=== PATIENT | male | born 1990 | race Caucasian/White ===

== ENCOUNTER 2017-12-03 09:28 | Emergency (ER) | payer BC, OTHER ==
--- NOTE | 2017-12-03 10:40 | RAD REPORT ---
EXAM DESCRIPTION: RAD - Chest Pa And Lat (2 Views) - 12/03/2017 10:03 am CLINICAL HISTORY: Right lateral chest wall pain. COMPARISON: 05/14/2012 FINDINGS: The lungs are clear. The heart is normal in size. No displaced fractures. IMPRESSION: No acute or concerning finding suspected.
--- NOTE | 2017-12-03 10:54 | ER ---
Nurse's Notes [facility] Name: Donavon Herron Age: 27 yrs Sex: Male : 1990 Arrival Date: 12/03/2017 Time: 09:29 Bed 23 Private MD: Diagnosis: Chest pain on breathing Presentation: 12/03 09:37 Presenting complaint: Patient states: pain to R ribs that began 5 days ago after ss pulling lines with a wrench. Pt reports that pain increases with movement and deep breathing. Transition of care: patient was not received from another setting of care. Onset of symptoms was November 29, 2017. Care prior to arrival: None. 09:37 Method Of Arrival: Ambulatory ss 09:37 Acuity: RAKESH 4 ss Historical: - Allergies: 09:39 No Known Allergies; ss - Home Meds: 09:39 sertraline 100 mg oral tab 1 tab once daily [Active]; ss - PMHx: 09:39 Anxiety; ss - PSHx: 09:39 None; ss - Immunization history:: Adult Immunizations up to date. - Social history:: Smoking status: Patient uses tobacco products, chewing tobacco. Screenin:30 Abuse screen: Denies threats or abuse. Denies injuries from another. Nutritional aj1 screening: No deficits noted. Tuberculosis screening: No symptoms or risk factors identified. 11:32 Fall Risk None identified. aj1 Assessment: 09:57 Reassessment: Patient in X-Ray at this time. aj1 10:30 General: Appears in no apparent distress. uncomfortable, Behavior is calm, cooperative, aj1 appropriate for age. Pain: Complains of pain in right lateral anterior chest Pain does not radiate. Pain currently is 8 out of 10 on a pain scale. Quality of pain is described as sharp, Pain began 5 daysago Alleviated by rest, Aggravated by increased activity, repositioning, deep breathing. Neuro: Level of Consciousness is awake, alert, obeys commands, Oriented to person, place, time, situation, Speech is normal. Cardiovascular: Heart tones S1 S2 present Patient's skin is warm and dry. Rhythm is regular. Respiratory: Airway is patent Respiratory effort is even, unlabored, Respiratory pattern is regular, symmetrical, Breath sounds are clear bilaterally. GI: No signs and/or symptoms were reported involving the gastrointestinal system. : No signs and/or symptoms were reported regarding the genitourinary system. EENT: No signs and/or symptoms were reported regarding the EENT system. Derm: No signs and/or symptoms reported regarding the dermatologic system. Skin is pink, warm \T\ dry. normal. Musculoskeletal: No signs and/or symptoms reported regarding the musculoskeletal system. Circulation, motion, and sensation intact. 11:31 Reassessment: Patient appears in no apparent distress at this time. No changes from aj1 previously documented assessment. Patient and/or family updated on plan of care and expected duration. Pain level reassessed. Patient is alert, oriented x 3, equal unlabored respirations, skin warm/dry/pink. Vital Signs: 09:39 BP 123 / 94; Pulse 72; Resp 16; Temp 98.2(TE); Pulse Ox 96% on R/A; Weight 125.65 kg; ss Height 5 ft. 8 in. (172.72 cm); Pain 8/10; 10:51 BP 124 / 75; Pulse 64; Resp 18; Pulse Ox 97% on R/A; aj1 09:39 Body Mass Index 42.12 (125.65 kg, 172.72 cm) ED Course: 09:29 Patient arrived in ED. as 09:39 Triage completed. ss 09:39 Arm band placed on right wrist. ss 09:44 [facility] kb 09:44 Rai Spann MD is Attending Physician. kb 09:57 Martha Sanford, JENNIFER is Primary Nurse. aj1 09:59 X-ray completed. Patient tolerated procedure well. Patient moved back from radiology. jb2 09:59 XRAY Chest Pa And Lat (2 Views) In Process Unspecified. EDMS 10:30 Patient has correct armband on for positive identification. Pulse ox on. NIBP on. aj1 10:30 No provider procedures requiring assistance completed. Patient maintains SpO2 aj1 saturation greater than 95% on room air. 11:31 Patient did not have IV access during this emergency room visit. aj1 Administered Medications: 10:56 Drug: TORadol 60 mg Route: IM; Site: right gluteus; aj1 11:31 Follow up: Response: No adverse reaction aj1 Outcome: 10:53 Discharge ordered by . kb 11:32 Discharged to home ambulatory. aj1 11:32 Condition: good 11:32 Discharge instructions given to patient, Instructed on discharge instructions, follow up and referral plans. Demonstrated understanding of instructions, follow-up care. 11:32 Patient left the ED. aj1 Signatures: Dispatcher [employer] Alondra Smalls, SLIM-Monica SMALLS-Martha Alva, RN RN aj1 Ezekiel Quintero2 Rand Morelos Shelby, JENNIFER RODRIGUEZ ss
--- NOTE | 2017-12-03 10:54 | EDPHYS ---
Physician Documentation [facility] Name: Donavon Herron Age: 27 yrs Sex: Male : 1990 Arrival Date: 12/03/2017 Time: 09:29 Bed 23 Private MD: ED Physician Rai Spann HPI: 12/03 10:28 This 27 yrs old Male presents to ER via Ambulatory with complaints of Chest kb Wall Pain. 10:28 The patient or guardian reports chest pain that is located primarily in the anterior kb chest wall, right. The pain does not radiate. Associated signs and symptoms: The patient has no apparent associated signs or symptoms. The chest pain is described as aching. Duration: The patient or guardian reports a single episode. Modifying factors: The symptoms are alleviated by nothing. the symptoms are aggravated by deep breath, movement, palpation of area. Severity of pain: At its worst the pain was moderate in the emergency department the pain is unchanged. The patient has not experienced similar symptoms in the past. The patient has not recently seen a physician. Pt states he was pulling on something and felt a pop to anterior lower right ribs on Wednesday. States he has had pain to that area since then that is worse with movement, deep breath, and palpation. . Historical: - Allergies: 09:39 No Known Allergies; ss - Home Meds: 09:39 sertraline 100 mg oral tab 1 tab once daily [Active]; ss - PMHx: 09:39 Anxiety; ss - PSHx: 09:39 None; ss - Immunization history:: Adult Immunizations up to date. - Social history:: Smoking status: Patient uses tobacco products, chewing tobacco. ROS: 10:27 Constitutional: Negative for fever, chills, and weight loss, Respiratory: Negative for kb shortness of breath, cough, wheezing, and pleuritic chest pain, Abdomen/GI: Negative for abdominal pain, nausea, vomiting, diarrhea, and constipation, MS/Extremity: Negative for injury and deformity, Skin: Negative for injury, rash, and discoloration, Neuro: Negative for headache, weakness, numbness, tingling, and seizure. 10:27 Cardiovascular: Positive for chest pain, with cough, with movement, of the right lateral anterior chest, Negative for edema, orthopnea, palpitations, paroxysmal nocturnal dyspnea. Exam: 10:27 Constitutional: This is a well developed, well nourished patient who is awake, alert, kb and in no acute distress. Head/Face: Normocephalic, atraumatic. Cardiovascular: Regular rate and rhythm with a normal S1 and S2. No gallops, murmurs, or rubs. Normal PMI, no JVD. No pulse deficits. Respiratory: Lungs have equal breath sounds bilaterally, clear to auscultation and percussion. No rales, rhonchi or wheezes noted. No increased work of breathing, no retractions or nasal flaring. Abdomen/GI: Soft, non-tender, with normal bowel sounds. No distension or tympany. No guarding or rebound. No evidence of tenderness throughout. Skin: Warm, dry with normal turgor. Normal color with no rashes, no lesions, and no evidence of cellulitis. MS/ Extremity: Pulses equal, no cyanosis. Neurovascular intact. Full, normal range of motion. Neuro: Awake and alert, GCS 15, oriented to person, place, time, and situation. Cranial nerves II-XII grossly intact. Motor strength 5/5 in all extremities. Sensory grossly intact. Cerebellar exam normal. Normal gait. 10:27 Chest/axilla: Inspection: normal, Palpation: tenderness, that is moderate, of the right lateral anterior chest, that totally reproduces the patient's complaints. Vital Signs: 09:39 BP 123 / 94; Pulse 72; Resp 16; Temp 98.2(TE); Pulse Ox 96% on R/A; Weight 125.65 kg; ss Height 5 ft. 8 in. (172.72 cm); Pain 8/10; 10:51 BP 124 / 75; Pulse 64; Resp 18; Pulse Ox 97% on R/A; aj1 09:39 Body Mass Index 42.12 (125.65 kg, 172.72 cm) ss MDM: 09:50 Patient medically screened. kb 10:27 Data reviewed: vital signs, nurses notes. Data interpreted: Pulse oximetry: on room air kb is 96 %. Interpretation: normal. 10:40 Counseling: I had a detailed discussion with the patient and/or guardian regarding: the kb historical points, exam findings, and any diagnostic results supporting the discharge/admit diagnosis, radiology results, the need for outpatient follow up, a family practitioner, to return to the emergency department if symptoms worsen or persist or if there are any questions or concerns that arise at home. 12/03 09:40 Order name: XRAY Chest Pa And Lat (2 Views); Complete Time: 10:40 ss 12/03 10:41 Order name: INCENTIVE SPIROMETRY kb Administered Medications: 10:56 Drug: TORadol 60 mg Route: IM; Site: right gluteus; aj1 11:31 Follow up: Response: No adverse reaction aj1 Disposition: 15:47 Co-signature as Attending Physician, Rai Spann MD I agree with the assessment and martha plan of care. Disposition: 12/03/17 10:53 Discharged to Home. Impression: Chest pain on breathing. - Condition is Stable. - Discharge Instructions: Costochondritis, [id number], Chest Wall Pain, [id number]. - Medication Reconciliation Form, Thank You Letter, Antibiotic Education, Prescription Opioid Use form. - Follow up: Emergency Department; When: As needed; Reason: Worsening of condition. Follow up: Private Physician; When: 2 - 3 days; Reason: Recheck today's complaints, Continuance of care, Re-evaluation by your physician. Signatures: Dispatcher [employer] Alondra Smalls, INLAYER-C INLAYER-Martha Alva, RN RN aj1 Rai Spann MD MD cha Smirch, Shelby, RN RN
[2017-12-03] MEDS ORDERED: KETOROLAC 30 MG/ML INJ ONE (11:13)
[2017-12-03 11:37] VITALS: TEMP 98.2
[2017-12-03 11:38] VITALS: BP 124/75; O2SAT 97
== END 2017-12-03 11:32 | disposition home or self-care (01) ==
LOC: ER 09:28
DX: R07.1 Chest pain on breathing (principal); F41.9 Anxiety disorder, unspecified; Z72.0 Tobacco use
CPT/HCPCS: 71046; 96372; 99284

== ENCOUNTER 2018-12-14 17:51 | Emergency (ER) | payer OTHER ==
[2018-12-14 18:31] LABS: Absolute Lymphocytes (CBC) 2.1 K/uL (0.7-4.9); Absolute Monocytes 0.5 K/uL (0.1-1.3); Absolute Neutrophil 5.5 K/uL (1.8-8.0); Basophils % 0.6 % (0-1.3); Eosinophils % 1.5 % (0-4.4); Hematocrit 44.1 % (39.6-49.0); Lymphocytes % 25.1 % (15.3-44.8); MPV 8.6 fL (7.6-11.3); Monocytes % 6.2 % (3.3-12.3)
[2018-12-14 18:35] LABS: Protime INR 1.01
[2018-12-14 18:47] LABS: ALT/SGPT 30 U/L (12-78); AST/SGOT 20 U/L (15-37); Albumin 4.1 g/dL (3.4-5.0); Alkaline Phosphatase 96 U/L (45-117); BUN Blood Urea Nitrogen 13 mg/dL (7-18); Bicarbonate 26 mmol/L (21-32); Bilirubin Direct 0.2 mg/dL (0-0.2); Bilirubin Total 0.6 mg/dL (0.2-1.0); CKMB Creatine Kinase MB 1.2 ng/mL (0.3-3.6); Creatine Phosphokinase 88 U/L (39-308); Glucose Level 88 mg/dL (74-106); Magnesium 2.4 mg/dL (1.8-2.4); NT PRO-BNP 9 pg/mL (<125); Potassium 3.9 mmol/L (3.5-5.1); Protein, Total 7.6 g/dL (6.4-8.2); Sodium Level 142 mmol/L (136-145); Troponin (Emerg Dept Use Only) < 0.02 ng/mL (0.0-0.045)
--- NOTE | 2018-12-14 18:52 | RAD REPORT ---
EXAM DESCRIPTION: Pete Single View12/14/2018 6:28 pm CLINICAL HISTORY: Chest pain COMPARISON: November 2017 FINDINGS: The lungs appear clear of acute infiltrate. The heart is normal size IMPRESSION: No acute abnormalities displayed
[2018-12-14] MEDS ORDERED: KETOROLAC 30 MG/ML INJ ONE (19:10)
--- NOTE | 2018-12-14 19:50 | ER ---
Nurse's Notes [facility] Name: Donavon Herron Age: 28 yrs Sex: Male : 1990 Arrival Date: 12/14/2018 Time: 17:53 Bed 2 Private MD: Diagnosis: Other chest pain;Electrocution Presentation: 12/14 17:58 Presenting complaint: Patient states: getting shocked by his welding machine, didn't sv realize that the wire was frayed. Has been having anterior chest wall pain since then. Transition of care: patient was not received from another setting of care. Onset of symptoms was December 14, 2018 at 12:00. Care prior to arrival: None. 17:58 Method Of Arrival: Ambulatory sv 17:58 Acuity: RAKESH 2 sv 18:05 Risk Assessment: Do you want to hurt yourself or someone else? Patient reports no aa5 desire to harm self or others. Initial Sepsis Screen: Does the patient meet any 2 criteria? No. Patient's initial sepsis screen is negative. Does the patient have a suspected source of infection? No. Patient's initial sepsis screen is negative. Historical: - Allergies: 17:59 No Known Allergies; sv - PMHx: 17:59 Anxiety; sv - PSHx: 17:59 None; sv - Immunization history:: Adult Immunizations unknown. - Ebola Screening: : No symptoms or risks identified at this time. - Social history:: Smoking status: unknown. Screenin:05 Abuse screen: Denies threats or abuse. Nutritional screening: No deficits noted. aa5 Tuberculosis screening: No symptoms or risk factors identified. Fall Risk None identified. Assessment: 18:05 General: Appears comfortable, Behavior is calm, cooperative. Pain: Complains of pain in aa5 mid-sternal area Pain does not radiate. Pain currently is 0 out of 10 on a pain scale. Quality of pain is described as pressure, Pain began around 1200 Is intermittent. Neuro: Level of Consciousness is awake, alert, obeys commands, Oriented to person, place, time, situation. Cardiovascular: Heart tones S1 S2 present Rhythm is sinus rhythm. Respiratory: Airway is patent Respiratory effort is even, unlabored, Respiratory pattern is regular, symmetrical, Breath sounds are clear bilaterally. GI: No signs and/or symptoms were reported involving the gastrointestinal system. : No signs and/or symptoms were reported regarding the genitourinary system. EENT: No signs and/or symptoms were reported regarding the EENT system. Derm: Skin is pink, warm \\T\\ dry. No entry or exit wound noted, pt states "I was holding on with both hands so I don't know if it was the actual welding machine that electrocuted me or the frayed wire". Musculoskeletal: Range of motion: intact in all extremities. 19:00 Reassessment: Patient is alert, oriented x 3, equal unlabored respirations, skin aa5 warm/dry/pink. 19:00 Pain: Pain currently is 4 out of 10 on a pain scale. Cardiovascular: Rhythm is sinus aa5 rhythm. Vital Signs: 17:59 BP 138 / 82; Pulse 99; Resp 16; Temp 97.7; Pulse Ox 97% ; Weight 127.01 kg; Height 5 sv ft. 7 in. (170.18 cm); Pain 0/10; 17:59 Body Mass Index 43.85 (127.01 kg, 170.18 cm) sv ED Course: 17:53 Patient arrived in ED. mr 17:59 Triage completed. sv 18:00 Arm band placed on. sv 18:05 Courtney Whitt RN is Primary Nurse. aa5 18:05 Patient has correct armband on for positive identification. Placed in gown. Bed in low aa5 position. Call light in reach. Side rails up X2. monitor car operator on. Pulse ox on. NIBP on. 18:05 EKG done, by ED staff, reviewed by Dre Yates MD. aa5 18:07 Rai Hanna PA is PHCP. cp 18:07 Dre Yates MD is Attending Physician. cp 18:19 Initial lab(s) drawn, by me, sent to lab. Inserted saline lock: 20 gauge in left aa5 antecubital area, using aseptic technique. Blood collected. 18:19 No provider procedures requiring assistance completed. Patient maintains SpO2 aa5 saturation greater than 95% on room air. 18:24 X-ray completed. Portable x-ray completed in exam room. Patient tolerated procedure bb2 well. 18:25 XRAY Chest (1 view) In Process Unspecified. EDMS 19:03 Report given to JENNIFER Malave. aa5 19:58 IV discontinued, intact, bleeding controlled, No redness/swelling at site. Pressure ak1 dressing applied. Administered Medications: 19:00 Drug: TORadol 30 mg Route: IVP; Site: left antecubital; aa5 19:58 Follow up: Response: No adverse reaction ak1 Outcome: 19:49 Discharge ordered by MD. cp 19:52 Discharged to home ambulatory, with family. ak1 19:52 Condition: good 19:52 Discharge instructions given to patient, family, Instructed on discharge instructions, follow up and referral plans. no drinking with medication, no driving heavy equipment, medication usage, Demonstrated understanding of instructions, follow-up care, medications, Prescriptions given X 1. 20:04 Patient left the ED. ea Signatures: Dispatcher [employer] EDMS Annalee Bowen, RN Arabella Baptiste mr Whitt, Courtney, RN RN Frieda Desai RN RN ak1 Rai Hanna PA PA cp Antunez, Elena, RN RN ea Bock, Brittany bb2
--- NOTE | 2018-12-14 19:50 | EDPHYS ---
Physician Documentation [facility] Name: Donavon Herron Age: 28 yrs Sex: Male : 1990 Arrival Date: 12/14/2018 Time: 17:53 Bed 2 Private MD: ED Physician Dre Yates HPI: 12/14 18:15 This 28 yrs old Male presents to ER via Ambulatory with complaints of Chest cp Tightness, Shocked by welding machine. 18:15 The patient or guardian reports chest pain that is located primarily in the anterior cp chest wall, bilaterally. 18:15 The pain does not radiate. Associated signs and symptoms: Pertinent negatives: cp abdominal pain, cough, diaphoresis, lower extremity pain, lower extremity swelling, shortness of breath, syncope. The chest pain is described as tightness. Duration: The patient or guardian reports a single episode, that is still ongoing. Patient reports chest pain started shortly after being shocked by welding machine around 1200 today. Historical: - Allergies: 17:59 No Known Allergies; sv - PMHx: 17:59 Anxiety; sv - PSHx: 17:59 None; sv - Immunization history:: Adult Immunizations unknown. - Ebola Screening: : No symptoms or risks identified at this time. - Social history:: Smoking status: unknown. ROS: 18:20 Constitutional: Negative for body aches, chills, fever, poor PO intake. cp 18:20 Eyes: Negative for injury, pain, redness, and discharge. cp Exam: 18:20 ECG was reviewed by the Attending Physician. cp 18:22 Constitutional: The patient appears in no acute distress, alert, awake, cp non-diaphoretic, non-toxic, well developed, well nourished, obese. 18:22 Head/Face: Normocephalic, atraumatic. cp 18:22 Eyes: Pupils equal round and reactive to light, extra-ocular motions intact. Lids and lashes normal. Conjunctiva and sclera are non-icteric and not injected. Cornea within normal limits. Periorbital areas with no swelling, redness, or edema. ENT: Nares patent. No nasal discharge, no septal abnormalities noted. Tympanic membranes are normal and external auditory canals are clear. Oropharynx with no redness, swelling, or masses, exudates, or evidence of obstruction, uvula midline. Mucous membranes moist. 18:22 Chest/axilla: Inspection: normal, Palpation: crepitus, is not appreciated, tenderness, that is mild, of the anterior aspect of right upper chest, anterior aspect of left upper chest and mid-sternal area. 18:22 Cardiovascular: Rate: normal, Rhythm: regular, Pulses: Pulses are 2+ in right radial artery and left radial artery. Heart sounds: murmur, not appreciated, Edema: is not appreciated, JVD: is not appreciated. 18:22 Respiratory: the patient does not display signs of respiratory distress, Respirations: normal, no use of accessory muscles, no retractions, no splinting, no tachypnea, labored breathing, is not present, Breath sounds: are clear throughout, no decreased breath sounds, no stridor, no wheezing. 18:22 Abdomen/GI: Inspection: abdomen appears normal, Bowel sounds: active, all quadrants, Palpation: abdomen is soft and non-tender, in all quadrants, rebound tenderness, is not appreciated, involuntary guarding, is not appreciated. 18:22 Back: pain, is absent, ROM is normal. 18:22 Skin: cellulitis, is not appreciated, no rash present. Vital Signs: 17:59 BP 138 / 82; Pulse 99; Resp 16; Temp 97.7; Pulse Ox 97% ; Weight 127.01 kg; Height 5 sv ft. 7 in. (170.18 cm); Pain 0/10; 17:59 Body Mass Index 43.85 (127.01 kg, 170.18 cm) sv MDM: 18:07 Patient medically screened. cp 18:30 Differential diagnosis: abnormal EKG, acute myocardial infarction, acute pericarditis, cp chest wall pain, pancreatitis, pericarditis, pleurisy, pneumonia, pneumothorax, pulmonary embolus, stable angina, unstable angina. 19:45 Data reviewed: vital signs, nurses notes, lab test result(s), EKG, radiologic studies, cp plain films. 19:45 Test interpretation: by ED physician or midlevel provider: ECG, plain radiologic cp studies. Response to treatment: the patient's symptoms have mildly improved after treatment, and as a result, I will discharge patient. Special discussion: Based on the patient's history, exam, and Dx evaluation, there is no indication for emergent intervention or inpatient Tx. It is understood by the patient/guardian that if the Sx's persist or worsen they need to return immediately for re-evaluation. 12/14 18:11 Order name: Basic Metabolic Panel; Complete Time: 19:10 cp 12/14 19:10 Interpretation: Normal except: GFR 85. cp 12/14 18:11 Order name: CBC with Diff; Complete Time: 19:10 cp 12/14 19:10 Interpretation: Reviewed. cp 12/14 18:11 Order name: LFT's; Complete Time: 19:10 cp 12/14 18:11 Order name: Magnesium; Complete Time: 19:10 cp 12/14 18:11 Order name: NT PRO-BNP; Complete Time: 19:10 cp 12/14 19:19 Interpretation: Within normal limits: NT PRO-BNP 9. cp 12/14 18:11 Order name: PT-INR; Complete Time: 19:10 cp 12/14 18:11 Order name: Troponin (emerg Dept Use Only); Complete Time: 19:10 cp 12/14 19:10 Interpretation: Within normal limits: TROPED < 0.02. cp 12/14 18:11 Order name: XRAY Chest (1 view); Complete Time: 19:10 cp 12/14 19:10 Interpretation: Report review. cp 12/14 18:11 Order name: EKG; Complete Time: 18:12 cp 12/14 18:11 Order name: Cardiac monitoring; Complete Time: 18:22 cp 12/14 18:11 Order name: EKG - Nurse/Tech; Complete Time: 18:22 cp 12/14 18:11 Order name: CK; Complete Time: 19:10 cp 12/14 19:19 Interpretation: Within normal limits: CPK 88. cp 12/14 18:11 Order name: Ckmb; Complete Time: 19:10 cp 12/14 19:20 Interpretation: Within normal limits: CKMB 1.2. cp 12/14 18:11 Order name: IV Saline Lock; Complete Time: 18:22 cp 12/14 18:11 Order name: Labs collected and sent; Complete Time: 18:22 cp 12/14 18:11 Order name: O2 Per Protocol; Complete Time: 18:22 cp 12/14 18:11 Order name: O2 Sat Monitoring; Complete Time: 18:22 cp EC:20 Rate is 84 beats/min. Rhythm is regular. FL interval is normal. QRS interval is normal. cp QT interval is normal. T waves are Inverted in lead III. Interpreted by me. Reviewed by me. Administered Medications: 19:00 Drug: TORadol 30 mg Route: IVP; Site: left antecubital; aa5 19:58 Follow up: Response: No adverse reaction ak1 Disposition: 12/14/18 19:49 Discharged to Home. Impression: Other chest pain, Electrocution. - Condition is Stable. - Discharge Instructions: Chest Wall Pain, Electric Shock Injury. - Prescriptions for Ibuprofen 800 mg Oral Tablet - take 1 tablet by ORAL route every 8 hours As needed take with food; 30 tablet. - Medication Reconciliation Form, Thank You Letter, Antibiotic Education, Prescription Opioid Use form. - Follow up: Private Physician; When: 1 - 2 days; Reason: Worsening of condition. - Problem is new. - Symptoms have improved. Signatures: Dispatcher [employer] EDAnnalee Adams RN RN sv Calderon, Audri RN RN aa5 Frieda Resendez RN RN ak1 Rai Hanna, BETSY PA Mari Singh RN RN ea Corrections: (The following items were deleted from the chart) 20:04 19:49 12/14/2018 19:49 Discharged to Home. Impression: Other chest pain; Electrocution. ea Condition is Stable. Forms are Medication Reconciliation Form, Thank You Letter, Antibiotic Education, Prescription Opioid Use. Follow up: Private Physician; When: 1 - 2 days; Reason: Worsening of condition. Problem is new. Symptoms have improved. cp
[2018-12-14 20:38] VITALS: BP 138/82; TEMP 97.7; O2SAT 97
--- NOTE | 2018-12-15 05:09 | EKG ---
Test Date: 2018-12-14 Test Time: 18:14:12 Multiple Resaw Operator: TEJINDER MEASUREMENT RESULTS: Intervals: Rate: 84 AK: 154 QRSD: 78 QT: 354 QTc: 418 [place]: P: 36 AK: 154 QRS: -6 T: 14 INTERPRETIVE STATEMENTS: Normal sinus rhythm Normal ECG No previous ECG available for comparison Electronically Signed On 12-15-18 05:08:30 CDT by Gene Musa
== END 2018-12-14 20:04 | disposition home or self-care (01) ==
LOC: ER 17:51
DX: T75.4XXA Electrocution, initial encounter (principal); R07.89 Other chest pain; W86.1XXA Exposure to industrial wiring, appliances and electrical machinery, initial encounter
CPT/HCPCS: 36415; 71045; 80048; 80076; 82550; 82553; 83735; 83880; 84484; 85025; 85610; 93005; 96374; 99285

== ENCOUNTER 2020-05-01 01:11 | Emergency (ER) | payer OTHER ==
--- OUTSIDE RECORDS SUMMARY | 2020-05-01 01:13 | XMS REPORT | Continuity of Care Document ---
:1990 Author Organization [facility] t Address [address] [place] [address] Care Team Providers Name Role Phone Fritz RAMÍREZ Attending Clinician Jeannine Vance MD Attending Clinician Doctor Unassigned, Name Attending Clinician Unavailable Problems This patient has no known problems. Allergies, Adverse Reactions, Alerts This patient has no known allergies or adverse reactions. Medications This patient has no known medications. Procedures This patient has no known procedures. Encounters Start End Encounter Admission Attending Care Care Encounter Source Date/Time Date/Time Type Type Clinicians Facility Department ID 2020-04-10 2020-04-10 [id number] 00:00:00 00:00:00 Syed Clark [id number] [place] [id number] Profmarie [id number] [address] 2020-03-08 2020-03-08 [facility] [id number] 00:00:00 00:00:00 Syed Clark [id number] [place] [id number] Professio [phone] [address] 2020-02-08 2020-02-08 Telephone Fritz [facility] [id number] 00:00:00 00:00:00 Syed Clark [id number] [place] [id number] Professio [id number] [address] 2020-01-31 2020-01-31 Office NINFA Vance [id number] 11:05:26 11:35:26 Visit Sae Clark [id number] [place] [id number] Professio [phone] [address] 2020-01-31 2020-01-31 Letter Pinky [facility] [id number] 00:00:00 00:00:00 (Out) Sae Jeannine Eduardo [id number] [place] [id number] Profclevelandio [id number] [address] 2020-01-31 2020-01-31 Orders Doctor JENNIFER [id number] 00:00:00 00:00:00 Only Unassigned, MARY [id number] [place] [facility] [id number] Results This patient has no known results.
--- OUTSIDE RECORDS SUMMARY | 2020-05-01 01:13 | XMS REPORT | Summary of Care ---
:1990 Author Organization [facility] Address [address] [place] [address] Care Team Providers Name Role Phone Pcp, Patient Does Not Have A Primary Care Provider +1-000-00 0-0000 Yonathan Finnegan Licensed Practical Nurse Reason for Visit Reason Comments Refill Request Encounter Details Date Type Department Care Team Description 02/08/2020 Telephone [facility] Cardiology- Yane Hu MD Refill Request [address] [facility], [address] [place] [address] [place] [address] [phone] Allergies No Known Allergiesdocumented as of this encounter (statuses as of 02/09/2020) Medications Medication Sig Dispensed Refills Start Date End Date Status ALBUTEROL SULFATE Inhale as 0 Ac tive HFA INHALE needed. amphetamine-dextr 0 09/22/2019 A ctive oamphetamine 25 mg 24 hr capsule dextroamphetamine 0 09/22/2019 A ctive -amphetamine 10 mg tablet busPIRone 10 mg 0 09/22/2019 Act mary tablet hydrOXYzine 50 mg 0 09/22/2019 A ctive tablet propranolol 40 mg Take 1 180 tablet 2 02/09/2020 Active tablet tablet by mouth 2 (two) times daily. propranolol 40 mg Take 1 180 tablet 2 01/10/2020 Discontinued tablet tablet by 0 (Reorder) mouth 2 (two) times daily. documented as of this encounter (statuses as of 02/09/2020) Active Problems Not on filedocumented as of this encounter (statuses as of 02/09/2020) Social History Tobacco Use Types Packs/Day Years Used Date Former Smoker Smokeless Tobacco: Former User Alcohol Use Drinks/Week oz/Week Comments Yes Alcohol Habits Answer Date Recorded How often do you have a drink containing 4 or more times a w [place] 07/21/2019 alcohol? How many drinks containing alcohol do you have 10 or more 07/21/2019 on a typical day when you are drinking? How often do you have six or more drinks on one Not asked occasion? Sex Assigned at Date Recorded Not on file Job Start Date Occupation Industry Not on file Not on file Not on file Travel History Travel Start Travel End No recent travel history available. COVID-19 Exposure Response Date Recorded In the last month, have you been in contact with No / Unsure 01/31/2020 11:13 AM CDT someone who was confirmed or suspected to have Coronavirus / COVID-19? documented as of this encounter Last Filed Vital Signs Not on filedocumented in this encounter Plan of Treatment Date Type Specialty Care Team Description 02/05/2021 Office Visit Pulmonary Disease Dileep Vance MD [address] [place] [address] [phone] Health Maintenance Due Date Last Done Comments VARICELLA VACCINES (1 of 2 - 1992 2-dose childhood series) PNEUMOCOCCAL 0-64 YEARS COMBINED 1997 SERIES (1 of 1 - PPSV23) INFLUENZA VACCINE (Season Ended) 2020 Postponed from 04/30/2020 (Refused) DTaP,Tdap,and Td Vaccines (1 - 09/07/2020 P ostponed from 2002 Tdap) (Refused) Depression Screening 09/27/2020 09/27/2019 documented as of this encounter Results Not on filedocumented in this encounter Insurance Payer Benefit Plan / Group Subscriber ID Effective Dates Phone Address Type AETNA AETNA HMO [id number] 2018-Present HM O documented as of this encounter
--- OUTSIDE RECORDS SUMMARY | 2020-05-01 01:13 | XMS REPORT | Summary of Care ---
:1990 Author Organization [facility] Address [address] [place] [address] Care Team Providers Name Role Phone Pcp, Patient Does Not Have A Primary Care Provider +1-000-00 0-0000 Yonathan Finnegan Licensed Practical Nurse Reason for Visit Reason Comments Refill Request Encounter Details Date Type Department Care Team Description 04/10/2020 Refill [facility] Cardiology- Yane Hu MD Refill Request [address] 146 [facility], [address] [place] [address] [place] [address] [phone] Allergies No Known Allergiesdocumented as of this encounter (statuses as of 04/10/2020) Medications Medication Sig Dispensed Refills Start Date [...] 40 mg Take 1 180 tablet 2 04/10/2020 Active tablet tablet by mouth 2 (two) times daily. propranolol 40 mg Take 1 180 tablet 2 03/08/2020 Discontinued tablet tablet by 0 (Reorder) mouth 2 (two) times daily. documented as of this encounter (statuses as of 04/10/2020) Active Problems Not on filedocumented as of this encounter (statuses as of 04/10/2020) Social History Tobacco Use Types Packs/Day Years Used Date Former Smoker Smokeless Tobacco: Former User Alcohol Use Drinks/Week oz/Week Comments Yes Alcohol Habits Answer Date Recorded How often do you have a drink containing 4 or more times a w [place] 07/21/2019 alcohol? How many drinks containing alcohol do you have 10 or more 07/21/2019 on a typical day when you are drinking? How often do you have six or more drinks on one Not asked occasion? Sex Assigned at Date Recorded Not on file documented as of this encounter Last Filed Vital Signs Not on filedocumented in this encounter Plan of Treatment Date Type Specialty Care Team Description 02/05/2021 Office Visit Pulmonary Disease Dileep Vance MD [address] [address] [phone] Health Maintenance Due Date Last Done Comments VARICELLA VACCINES (1 of 2 - 1992 2-dose childhood series) PNEUMOCOCCAL 0-64 YEARS COMBINED 1997 SERIES (1 of 1 - PPSV23) INFLUENZA VACCINE (#1) 2020 DTaP,Tdap,and Td Vaccines (1 - 09/07/2020 P ostponed from 2010 Tdap) (Refused) Depression Screening 09/27/2020 09/27/2019 documented as of this encounter Results Not on filedocumented in this encounter Insurance Payer Benefit Plan / Group Subscriber ID Effective Dates Phone Address Type AETNA AETNA HMO [id number] 2018-Present O documented as of this encounter
--- OUTSIDE RECORDS SUMMARY | 2020-05-01 01:13 | XMS REPORT | Summary of Care ---
:1990 Author Organization [facility] [[email or web address] - Health Address [address] [place] [address] Care Team Providers Name Role Phone Pcp, Patient Does Not Have A Primary Care Provider +1-000-00 0-0000 Yonathan Finnegan Licensed Practical Nurse Encounter Details Date Type Department Care Team Description 01/31/2020 Orders Only [facility] [[email or web address]] Doctor Unassigned, No [address] [facility] [place] [address] [address] [place] [address] Allergies No Known Allergiesdocumented as of this encounter (statuses as of 02/21/2020) Medications Medication Sig Dispensed Refills Start Date End Date Status ALBUTEROL SULFATE HFA Inhale as needed. 0 Active INHALE amphetamine-dextroamphe 0 09/22/2019 Active tamine 25 mg 24 hr capsule dextroamphetamine-amphe 0 09/22/2019 Active tamine 10 mg tablet busPIRone 10 mg tablet 0 09/22/2019 Active hydrOXYzine 50 mg 0 09/22/2019 A ctive tablet documented as of this encounter (statuses as of 02/21/2020) Active Problems Not on filedocumented as of this encounter (statuses as of 02/21/2020) Social History Tobacco Use Types Packs/Day Years Used Date Former Smoker Smokeless Tobacco: Former User Alcohol Use Drinks/Week oz/Week Comments Yes Alcohol Habits Answer Date Recorded How often do you have a drink containing 4 or more times a w [place] 07/21/2019 alcohol? How many drinks containing alcohol [...] Visit Pulmonary Disease Dileep Vance MD [address] [address] [phone] Health Maintenance Due Date Last Done Comments VARICELLA VACCINES (1 of 2 - 1992 2-dose childhood series) PNEUMOCOCCAL 0-64 YEARS COMBINED 1997 SERIES (1 of 1 - PPSV23) INFLUENZA VACCINE (Season Ended) 2020 Postponed from 04/30/2020 (Refused) DTaP,Tdap,and Td Vaccines (1 - 09/07/2020 P ostponed from 2002 Tdap) (Refused) Depression Screening 09/27/2020 09/27/2019 documented as of this encounter Procedures Procedure Name Priority Date/Time Associated Diagnosis Comme nts DME/SUPPLY JUSTIFICATION Routine 01/31/2020 12:01 AM CDT documented in this encounter Results Not on filedocumented in this encounter Insurance Payer Benefit Plan / Group Subscriber ID Effective Dates Phone Address Type AETNA AETNA HMO [id number] 2018-Present HM O documented as of this encounter
--- OUTSIDE RECORDS SUMMARY | 2020-05-01 01:13 | XMS REPORT | Summary of Care ---
:1990 Author Organization [facility] Address [address] [place] [address] Care Team Providers Name Role Phone Pcp, Patient Does Not Have A Primary Care Provider +1-000-00 0-0000 Yonathan Finnegan Licensed Practical Nurse Reason for Visit Reason Comments Refill Request Encounter Details Date Type Department Care Team Description 03/08/2020 Refill [facility] Cardiology- Yane Hu MD Refill Request [place] [address] [facility] 146 [facility], [address] [place] [address] [place] [address] [phone] Allergies No Known Allergiesdocumented as of this encounter (statuses as of 03/08/2020) Medications Medication Sig Dispensed Refills Start Date [...] mg Take 1 180 tablet 2 03/08/2020 Active tablet tablet by mouth 2 (two) times daily. propranolol 40 mg Take 1 180 tablet 2 02/09/2020 Discontinued tablet tablet by 0 (Reorder) mouth 2 (two) times daily. documented as of this encounter (statuses as of 03/08/2020) Active Problems Not on filedocumented as of this encounter (statuses as of 03/08/2020) Social History Tobacco Use Types Packs/Day Years Used Date Former Smoker Smokeless Tobacco: Former User Alcohol Use Drinks/Week oz/Week Comments Yes Alcohol Habits Answer Date Recorded How often do you have a drink containing 4 or more times a w [place] 07/21/2019 alcohol? How many drinks containing [...] Travel End No recent travel history available. documented as of this encounter Last Filed Vital Signs Not on filedocumented in this encounter Plan of Treatment Date Type Specialty Care Team Description 02/05/2021 Office Visit Pulmonary Disease Dileep Vance MD [address] [address] [phone] Health Maintenance Due Date Last Done Comments VARICELLA VACCINES (1 of 2 - 1992 2-dose childhood series) PNEUMOCOCCAL 0-64 YEARS COMBINED 1997 SERIES (1 of 1 - PPSV23) INFLUENZA VACCINE (#1) 2020 Postponed from 04/30/2020 (Refused) DTaP,Tdap,and Td Vaccines (1 - 09/07/2020 P ostponed from 2002 Tdap) (Refused) Depression Screening 09/27/2020 09/27/2019 documented as of this encounter Results Not on filedocumented in this encounter Insurance Payer Benefit Plan / Group Subscriber ID Effective Dates Phone Address Type AETNA AETNA HMO [id number] 2018-Present HM O documented as of this encounter
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
--- NOTE | 2020-05-01 02:09 | ER ---
Nurse's Notes [facility] Name: Donavon Herron Age: 29 yrs Sex: Male : 1990 Arrival Date: 05/01/2020 Time: 01:14 Bed 20 Private MD: Diagnosis: Fall due to bumping against object;Superficial injury of head;Strain of muscle, fascia and tendon at neck level Presentation: 05/01 01:20 Chief complaint: Patient states: I sleep walk fell down and hit the back of head on the rr5 hardwood floor around 0020H. denies LOC nausea or vomiting. 01:20 Coronavirus screen: Client denies travel out of the [place] in the last 14 days. At this rr5 time, the client does not indicate any symptoms associated with coronavirus-19. Ebola Screen: Patient negative for fever greater than or equal to 101.5 degrees Fahrenheit, and additional compatible Ebola Virus Disease symptoms Patient denies exposure to infectious person. Patient denies travel to an Ebola-affected area in the 21 days before illness onset. Initial Sepsis Screen: Does the patient meet any 2 criteria? No. Patient's initial sepsis screen is negative. Does the patient have a suspected source of infection? No. Patient's initial sepsis screen is negative. Risk Assessment: Do you want to hurt yourself or someone else? Patient reports no desire to harm self or others. Onset of symptoms was May 01, 2020. 01:20 Method Of Arrival: Ambulatory rr5 01:20 Acuity: RAKESH 3 rr5 Historical: - Allergies: 01:28 No Known Allergies; rr5 - Home Meds: 01:28 aderal [Active]; Propranolol Oral [Active]; rr5 - PMHx: 01:28 Anxiety; ADD/ADHD; heart problem; rr5 - PSHx: 01:28 None; rr5 - Immunization history:: Adult Immunizations up to date. - Social history:: Smoking status: unknown Patient uses alcohol, on a daily basis. Patient/guardian denies using street drugs. Screenin:25 Fall Risk Fall in past 12 months (25 points). Total Friend Fall Scale indicates No Risk rr5 (0-24 pts). 01:30 Abuse screen: Denies threats or abuse. Denies injuries from another. Nutritional rr5 screening: No deficits noted. Tuberculosis screening: No symptoms or risk factors identified. Assessment: 01:30 General: Appears in no apparent distress. comfortable, Behavior is calm, cooperative, rr5 appropriate for age. Pain: Complains of pain in scalp Pain currently is 2 out of 10 on a pain scale. Quality of pain is described as aching, Pain began suddenly, Is intermittent. Neuro: Level of Consciousness is awake, alert, obeys commands, Oriented to person, place, time, situation, Denies dizziness, loc. Cardiovascular: Capillary refill < 3 seconds Patient's skin is warm and dry. Respiratory: Airway is patent Respiratory effort is even, unlabored, Respiratory pattern is regular, symmetrical. GI: No signs and/or symptoms were reported involving the gastrointestinal system. Patient currently denies nausea, vomiting. : No signs and/or symptoms were reported regarding the genitourinary system. EENT: No signs and/or symptoms were reported regarding the EENT system. Derm: Skin is intact, is healthy with good turgor, Skin temperature is warm. Musculoskeletal: Circulation, motion, and sensation intact. Capillary refill < 3 seconds. 02:21 Reassessment: Patient appears in no apparent distress at this time. Patient is alert, rr5 oriented x 3, equal unlabored respirations, skin warm/dry/pink. awaiting for CT result. Vital Signs: 01:20 BP 127 / 78; Pulse 77; Resp 18; Temp 97.8; Pulse Ox 100% ; Weight 127.01 kg; Height 5 rr5 ft. 8 in. (172.72 cm); Pain 2/10; 02:21 BP 121 / 75; Pulse 70; Resp 16; Pulse Ox 99% ; rr5 01:20 Body Mass Index 42.57 (127.01 kg, 172.72 cm) rr5 [place] Coma Score: 02:05 Eye Response: spontaneous(4). Verbal Response: oriented(5). Motor Response: obeys martha commands(6). Total: 15. NIH Stroke Scale Scores: 01:33 NIHSS Score: 0 [facility] ED Course: 01:14 Patient arrived in ED. cl3 01:14 Rai Spann MD is Attending Physician. martha 01:17 Yung Mahan RN is Primary Nurse. rr5 01:20 Arm band placed on right wrist. rr5 01:27 Triage completed. rr5 01:30 Patient has correct armband on for positive identification. Bed in low position. Call rr5 light in reach. 01:31 No provider procedures requiring assistance completed. rr5 02:02 CT Head C Spine In Process Unspecified. EDMS 02:28 Patient did not have IV access during this emergency room visit. mg2 Administered Medications: No medications were administered Outcome: 02:08 Discharge ordered by . martha 02:28 Discharged to home ambulatory. mg2 02:28 Condition: stable 02:28 Discharge instructions given to patient, Instructed on discharge instructions, follow up and referral plans. medication usage, Demonstrated understanding of instructions, follow-up care, medications, Prescriptions given X 1. 02:28 Patient left the ED. mg2 NIH Stroke Scale - NIH Stroke Score Date: 05/01/2020 Time: 01:33 Total Score = 0 1a. Level of Consciousness (LOC) - 0(Alert) 1b. Level of Consciousness (LOC) (Year \T\ Age) - 0(Both) 1c. LOC Commands (Open \T\ Closes Eyes/Resistor Winder) - 0(Both) 2. Best Gaze (Lateral Gaze Paresis) - 0(Normal) 3. Visual Field Loss - 0(No visual loss) 4. Facial Palsy - 0(Normal) 5a. Left Arm: Motor (10-second hold) - 0(No drift) 5b. Right Arm: Motor (10-second hold) - 0(No drift) 6a. Left Leg: Motor (5-second hold - always test supine) - 0(No drift) 6b. Right Leg: Motor (5-second hold - always test supine) - 0(No drift) 7. Limb Ataxia (finger/nose \T\ heel/simon - test with eyes open) - 0(Absent) 8. Sensory Loss (pinprick arms/legs/face) - 0(Normal) 9. Best Language: Aphasia (description/naming/reading) - 0(No aphasia) 10. Dysarthria (speech clarity - read or repeat words) - 0(Normal) 11. Extinction and Inattention (visual/tactile/auditory/spatial/personal) - 0(No abnormality) Initials: martha Signatures: Dispatcher [employer] Rai Bustos MD MD cha Gardose, Michele, RN RN mg2 Yung Mahan RN RN rr5 Ashley Benjamin cl3
--- NOTE | 2020-05-01 12:21 | RAD REPORT ---
EXAM DESCRIPTION: CT - CTHCSPWOC - 05/01/2020 6:44 am CLINICAL HISTORY: PAIN COMPARISON: None available TECHNIQUE: Axial CT of the head obtained from the skull apex to the skull base without contrast. Axi al CT images of the cervical spine obtained from the skull base through the thoracic inlet. Sagittal and coronal reformatted images available. Quantum mottle artifact on cervical spine imaging. FINDINGS: CT head: No acute intracranial hemorrhage identified. No mass, mass effect, shift of the midline, abnormal ext ra-axial fluid collection or CT evidence of acute ischemic change identified. The ventricular system is unremarkable. No acute abnormalities of the supratentorial white matter, basal ganglia, cerebell um, or brainstem. Minimal mucosal thickening of the paranasal sinuses. Mastoid air cells are well aerated. No skull fra cture identified. Visualized orbits and globes are unremarkable. Cervical CT: Straightening of the cervical lordosis may be secondary to patient positioning. The atlantoaxial, a tlantodental, and occipitoatlantal intervals are preserved. No fracture identified. Vertebral body height preserved. Prevertebral soft tissues are unremarkable. Mild multilevel loss of intervertebral disc height with mild endplate spondylosis. Visualized skull base is intact. No fracture of the visualized facial bones. Visualized mastoid air c ells and paranasal sinuses are well aerated. Visualized thyroid is unremarkable. No cervical lymphadenopathy. No pneumothorax in the visualized lung apices. IMPRESSION: 1. No acute intracranial abnormality. 2. No acute fracture or subluxation of the cervical spine. This exam was performed according to our departmental dose-optimization program, which includes autom ated exposure control, adjustment of the mA and/or kV according to patient size and/or use of iterati ve reconstruction technique. Electronically signed by: James Weiss 05/01/2020 2:14 AM CDT Due to temporary technical issues with the PACS/Fluency reporting system, reports are being signed by the in house radiologist without review as a courtesy to ensure prompt reporting. The interpreting r adiologist is fully responsible for the content of the report.
[2020-05-03 09:08] VITALS: BP 121/75; TEMP 97.8; O2SAT 99
== END 2020-05-01 02:28 | disposition home or self-care (01) ==
LOC: ER 01:11
DX: S00.90XA Unspecified superficial injury of unspecified part of head, initial encounter (principal); S16.1XXA Strain of muscle, fascia and tendon at neck level, initial encounter; W01.10XA Fall on same level from slipping, tripping and stumbling with subsequent striking against unspecified object, initial encounter; Y93.9 Activity, unspecified; Y92.9 Unspecified place or not applicable; R29.700 NIHSS score 0
CPT/HCPCS: 70450; 72125; 99283

== ENCOUNTER 2021-02-12 12:32 | Observation (INO) | payer OTHER ==
--- OUTSIDE RECORDS SUMMARY | 2021-02-12 12:37 | XMS REPORT | Continuity of Care Document ---
:1990 Author Organization [facility] t Address [address] [place] [address] Care Team Providers Name Role Phone Fritz [...] Date/Time Type Type Clinicians Facility Department ID 2020-12-10 2020-12-10 [id number] 00:00:00 00:00:00 Syed Clark [id number] [place] [id number] Professio [phone] [address] 2020-11-12 2020-11-12 [id number] 00:00:00 00:00:00 Syed Clark [id number] [place] [id number] [facility] [phone] [address] 2020-08-06 2020-08-06 [facility] [id number] 00:00:00 00:00:00 Syed Clark [id number] [place] [id number] Profess[facility] [phone] [address] 2020-05-10 2020-05-10 Refill [facility] [id number] 00:00:00 00:00:00 Syed Newcomb [id number] [place] [id number] Profess[facility] [phone] [address] 2020-04-10 2020-04-10 Refill [facility] [id number] 00:00:00 00:00:00 Qiangjun Newcomb [id number] [place] [id number] [facility] [phone] [address] 2020-03-08 2020-03-[id number] 00:00:00 00:00:00 Syed Newcomb [id number] [place] [id number] [facility] [phone] [address] 2020-02-08 2020-02-08 [facility] [place] [id number] 00:00:00 00:00:00 Syed Newcomb [id number] [place] [id number] [facility] [phone] [address] 2020-01-31 2020-01-31 Office [facility] [id number] 11:05:26 11:35:26 Visit Strahil T Newcomb [id number] [place] [id number] Professio [phone] [address] 2020-01-31 2020-01-31 Letter [facility] [id number] 00:00:00 00:00:00 (Out) Strahil T Newcomb [id number] [place] [id number] Professio [phone] [address] 2020-01-31 2020-01-31 Orders Doctor JENNIFER [id number] 00:00:00 00:00:00 Only Unassigned, MARY [id number] [facility] [id number] [phone] 009 Results This patient has no known results.
[2021-02-12] MEDS ORDERED: LIDOCAINE VISCOUS 2% SOLN 15 ML UDC ONE (13:40)
[2021-02-12 13:43] LABS: Absolute Lymphocytes (CBC) 1.3 K/uL (0.7-4.9); Basophils % 0.5 % (0-1.3); Hematocrit 40.9 % (39.6-49.0); Lymphocytes % 9.8 % (15.3-44.8); MPV 8.1 fL (7.6-11.3); RBC Red Blood Cell Count 4.57 M/uL (4.33-5.43)
[2021-02-12] MEDS ORDERED: MORPHINE 4 MG/ML SYR ONE ×2 (13:57→16:34)
[2021-02-12] MEDS ORDERED: ONDANSETRON 4 MG/2 ML VIAL ONE ×2 (13:57→16:34)
[2021-02-12 14:06] LABS: Albumin 3.2 g/dL (3.4-5.0); Bilirubin Direct 0.3 mg/dL (0-0.2); Bilirubin Total 0.8 mg/dL (0.2-1.0); Potassium 3.9 mmol/L (3.5-5.1); Protein, Total 7.9 g/dL (6.4-8.2)
--- NOTE | 2021-02-12 14:11 | RAD REPORT ---
EXAM DESCRIPTION: CT - Pelvis W/Cont - 02/12/2021 1:56 pm CLINICAL HISTORY: rectal pain Pain and swelling. COMPARISON: No comparisons TECHNIQUE: All CT scans are performed using dose optimization technique as appropriate and may inclu de automated exposure control or mA/KV adjustment according to patient size. FINDINGS: An ovoid shaped 6.1 x 3.1 cm perirectal abscess is present. There is mild surrounding infl ammatory changes in the fat. There is no extension of the abscess into the pelvis. No fracture or aggressive marrow pattern. IMPRESSION: [place] ovoid shaped 6 cm perirectal abscess
[2021-02-12] MEDS ORDERED: Levofloxacin 750mg IV 750 MG/150 ML BAG IV ONE (14:42)
--- NOTE | 2021-02-12 14:52 | EDPHYS ---
Physician Documentation [facility] Name: Donavon Herron Age: 30 yrs Sex: Male : 1990 Arrival Date: 02/12/2021 Time: 12:38 Bed 19 Private MD: ED Physician Heriberto Calhoun HPI: 02/12 13:20 This 30 yrs old Male presents to ER via Ambulatory with complaints of jmm Hemorrhoids. 13:20 The patient presents to the emergency department with pain in the rectal area. Onset: jmm The symptoms/episode began/occurred gradually, 5 day(s) ago. Modifying factors: The symptoms are alleviated by nothing, The symptoms are aggravated by nothing. Associate signs and symptoms: Pertinent negatives: fever. This is a 30 year old male with a history of anxiety, tachycardia that presents to the ED with complaints of rectal pain beginning 5 days ago. Denies fever, diarrhea. . Historical: - Allergies: 12:47 No Known Allergies; ca1 - Home Meds: 12:47 aderal [Active]; Propranolol Oral [Active]; ca1 - PMHx: 12:47 ADD/ADHD; Anxiety; heart problem; ca1 - PSHx: 12:47 None; ca1 - Immunization history:: Client reports having NOT received the Covid vaccine. Flu vaccine is not up to date. - Social history:: Smoking status: Patient/guardian denies using tobacco, the patient reports quitting approximately 10 years ago. ROS: 13:20 Constitutional: Negative for fever, chills, and weight loss, Cardiovascular: Negative jmm for chest pain, palpitations, and edema, Respiratory: Negative for shortness of breath, cough, wheezing, and pleuritic chest pain. 13:20 Abdomen/GI: Positive for rectal pain. 13:20 All other systems are negative. Exam: 13:20 Constitutional: This is a well developed, well nourished patient who is awake, alert, jmm and in no acute distress. Head/Face: atraumatic. Eyes: EOMI, no conjunctival erythema appreciated ENT: Moist Mucus Membranes Neck: Trachea midline, Supple Chest/axilla: Normal chest wall appearance and motion. Cardiovascular: Regular rate and rhythm. No edema appreciated Respiratory: Normal respirations, no respiratory distress appreciated 13:20 Back: Normal ROM Skin: General appearance color normal MS/ Extremity: Moves all extremities, no obvious deformities appreciated, no edema noted to the lower extremities Neuro: Awake and alert, normal gait Psych: Behavior is normal, Mood is normal, Patient is cooperative and pleasant 13:20 Abdomen/GI: Inspection: abdomen appears normal, Bowel sounds: normal, Rectal exam: mass, is not appreciated, tenderness, that is mild. 14:58 ECG was reviewed by the Attending Physician. [facility] Vital Signs: 12:44 BP 140 / 74; Pulse 108; Resp 18 S; Temp 98(TE); Pulse Ox 99% ; Weight 133.81 kg (R); ca1 Height 5 ft. 8 in. (172.72 cm) (M); Pain 8/10; 14:12 BP 109 / 55 RA (man/); Pulse 88 MON; Resp 16; Pulse Ox 98% on R/A; ap3 16:07 BP 133 / 93; Pulse 91; Pulse Ox 97% on R/A; Pain 8/10; ap3 12:44 Body Mass Index 44.85 (133.81 kg, 172.72 cm) ca1 MDM: 13:20 Patient medically screened. [facility] 14:41 Data reviewed: vital signs, nurses notes. Counseling: I had a detailed discussion with [facility] the patient and/or guardian regarding: the historical points, exam findings, and any diagnostic results supporting the discharge/admit diagnosis, radiology results, the need for further work-up and treatment in the hospital. 02/12 13:22 Order name: Basic Metabolic Panel; Complete Time: 14:09 [facility] 02/12 13:22 Order name: CBC with Diff; Complete Time: 13:53 [facility] 02/12 13:22 Order name: Hepatic Function; Complete Time: 14:09 [facility] 02/12 13:22 Order name: Lipase; Complete Time: 14:09 [facility] 02/12 14:08 Order name: CREATININE WHOLE BLOOD; Complete Time: 14:11 [facility] 02/12 13:22 Order name: CT Pelvis w cont; Complete Time: 14:14 [facility] 02/12 14:57 Order name: Basic Metabolic Panel [facility] 02/12 14:57 Order name: Basic Metabolic Panel [facility] 02/12 14:57 Order name: CBC with Automated Diff [facility] 02/12 14:57 Order name: CBC with Automated Diff [facility] 02/12 15:44 Order name: SARS-COV-2 RT PCR; Complete Time: 16:09 [facility] 02/12 13:22 Order name: IV Saline Lock; Complete Time: 13:33 [facility] 02/12 13:22 Order name: Labs collected and sent; Complete Time: 13:33 [facility] 02/12 14:33 Order name: EKG - Nurse/Tech; Complete Time: 14:54 [facility] 02/12 14:57 Order name: NPO [facility] EC:58 Rate is 85 beats/min. Rhythm is regular. QRS [place] is Normal. MO interval is normal. QRS jmm interval is normal. QT interval is normal. No Q waves. T waves are Normal. No ST changes noted. Reviewed by me. Administered Medications: 13:41 Drug: morphine 4 mg Route: IVP; Site: left wrist; ap3 14:15 Follow up: Response: No adverse reaction; Pain is decreased ap3 13:41 Drug: Zofran (Ondansetron) 4 mg Route: IVP; Site: left wrist; ap3 14:15 Follow up: Response: No adverse reaction; Nausea is decreased ap3 14:29 Drug: LevaQUIN (levofloxacin) 750 mg Volume: 150 ml; Route: IVPB; Infused Over: 90 ap3 mins; Site: left wrist; 16:06 Follow up: Response: No adverse reaction; IV Status: Completed infusion ap3 17:33 Drug: morphine 4 mg Route: IVP; Site: left wrist; ap3 17:37 Follow up: Response: No adverse reaction; Pain is decreased; RASS: Alert and Calm (0) ap3 Disposition: 02/13 07:26 Co-signature as Attending Physician, Heriberto Calhoun MD I agree with the assessment and kdr plan of care. Disposition: 02/12/21 14:51 Hospitalization ordered by Kamran Reed for Inpatient Admission. Preliminary diagnosis is Perirectal Abscess. - Bed requested for Telemetry/MedSurg (Inpatient). - Status is Inpatient Admission. ap3 - Condition is Stable. - Problem is new. - Symptoms are unchanged. Signatures: Dispatcher [facility] Beatriz Hicks RN RN dw Rittger, Kevin, MD MD kdr Mickail, Joel, PA PA Sejal Solorio RN RN ap3 Madelyn Hernandez RN RN ca1 Corrections: (The following items were deleted from the chart) 06/16 14:35 14:17 CORONAVIRUS+MR.RAMESH.GRISELDAZ ordered. [facility] EDMS 17:20 14:51 Hospitalization Ordered by Kamran Reed MD for Inpatient Admission. Preliminary dw diagnosis is Perirectal Abscess. Bed requested for Telemetry/MedSurg (Inpatient). Status is Inpatient Admission. Condition is Stable. Problem is new. Symptoms are unchanged. [facility] 18:03 17:20 02/12/2021 14:51 Hospitalization Ordered by Kamran Reed MD for Inpatient ap3 Admission. Preliminary diagnosis is Perirectal Abscess. Bed requested for Telemetry/MedSurg (Inpatient). Status is Inpatient Admission. Condition is Stable. Problem is new. Symptoms are unchanged. dw
--- NOTE | 2021-02-12 14:52 | ER ---
Nurse's Notes [facility] Name: Donavon Herron Age: 30 yrs Sex: Male : 1990 Arrival Date: 02/12/2021 Time: 12:38 Bed 19 Private MD: Diagnosis: Perirectal Abscess Presentation: 02/12 12:44 Chief complaint: Patient states: I think I got hemorrhoids, started Wednesday. Am in ca1 pain right now and hurts to sit. Denies bleeding. Coronavirus screen: Client denies travel out of the [place] in the last 14 days. At this time, the client does not indicate any symptoms associated with coronavirus-19. Ebola Screen: Patient negative for fever greater than or equal to 101.5 degrees Fahrenheit, and additional compatible Ebola Virus Disease symptoms Patient denies exposure to infectious person. Patient denies travel to an Ebola-affected area in the 21 days before illness onset. No symptoms or risks identified at this time. Initial Sepsis Screen: Does the patient meet any 2 criteria? No. Patient's initial sepsis screen is negative. Does the patient have a suspected source of infection? No. Patient's initial sepsis screen is negative. Risk Assessment: Do you want to hurt yourself or someone else? Patient reports no desire to harm self or others. Onset of symptoms was February 12, 2021. 12:44 Method Of Arrival: Ambulatory ca1 12:44 Acuity: RAKESH 3 ca1 Historical: - Allergies: 12:47 No Known Allergies; ca1 - Home Meds: 12:47 aderal [Active]; Propranolol Oral [Active]; ca1 - PMHx: 12:47 ADD/ADHD; Anxiety; heart problem; ca1 - PSHx: 12:47 None; ca1 - Immunization history:: Client reports having NOT received the Covid vaccine. Flu vaccine is not up to date. - Social history:: Smoking status: Patient/guardian denies using tobacco, the patient reports quitting approximately 10 years ago. Screenin:58 Abuse screen: Denies threats or abuse. Nutritional screening: No deficits noted. ap3 Tuberculosis screening: No symptoms or risk factors identified. Fall Risk None identified. Assessment: 12:56 General: Appears in no apparent distress. uncomfortable, Behavior is calm, cooperative, ap3 appropriate for age. Pain: Complains of pain in buttocks Pain began Wednesday. Neuro: Level of Consciousness is awake, alert, obeys commands, Oriented to person, place, time, situation. Cardiovascular: Denies chest pain, Capillary refill < 3 seconds. Respiratory: Airway is patent Respiratory effort is even, unlabored, Respiratory pattern is regular, symmetrical, Denies shortness of breath. GI: Reports hemorrhoids, Patient currently denies bloody stool, rectal bleeding. : No signs and/or symptoms were reported regarding the genitourinary system. EENT: No signs and/or symptoms were reported regarding the EENT system. Derm: No signs and/or symptoms reported regarding the dermatologic system. 14:11 Reassessment: Patient and/or family updated on plan of care and expected duration. Pain ap3 level reassessed. Patient is alert, oriented x 3, equal unlabored respirations, skin warm/dry/pink. Patient states symptoms have improved. 14:54 Reassessment: No changes from previously documented assessment. ap3 15:48 Reassessment: No changes from previously documented assessment. Patient and/or family ap3 updated on plan of care and expected duration. Pain level reassessed. 17:28 General: attempted to call report three times, phone line has been busy all three ap3 times. Will continue to attempt report. 17:37 General: patient updated on room assignment on med/surg floor. . ap3 Vital Signs: 12:44 BP 140 / 74; Pulse 108; Resp 18 S; Temp 98(TE); Pulse Ox 99% ; Weight 133.81 kg (R); ca1 Height 5 ft. 8 in. (172.72 cm) (M); Pain 8/10; 14:12 BP 109 / 55 RA (man/); Pulse 88 MON; Resp 16; Pulse Ox 98% on R/A; ap3 16:07 BP 133 / 93; Pulse 91; Pulse Ox 97% on R/A; Pain 8/10; ap3 12:44 Body Mass Index 44.85 (133.81 kg, 172.72 cm) ca1 ED Course: 12:38 Patient arrived in ED. wm 12:46 Triage completed. ca1 12:47 Arm band placed on right wrist. Patient placed in an exam room. ca1 12:51 Sejal Stephens RN is Primary Nurse. ap3 12:51 Levi Ruiz PA [facility]CP[facility] 12:52 Heriberto Calhoun MD is Attending Physician. [facility] 12:58 Patient has correct armband on for positive identification. Placed in gown. Bed in low ap3 position. Call light in reach. Side rails up X 1. Pulse ox on. NIBP on. Door closed. Noise minimized. Warm blanket given. 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 ap3 13:30 Inserted saline lock: 20 gauge in left wrist, using aseptic technique. Blood collected. ap3 13:[address] via stretcher. ap3 13:56 CT Pelvis w cont In Process Unspecified. EDMS 14:[address] moved back from CT. ap3 14:51 Kamran Reed MD is Hospitalizing Provider. [facility] 16:06 Pt visited by . ap3 18:03 Patient admitted, IV remains in place. ap3 Administered Medications: 13:41 Drug: morphine 4 mg Route: IVP; Site: left wrist; ap3 14:15 Follow up: Response: No adverse reaction; Pain is decreased ap3 13:41 Drug: Zofran (Ondansetron) 4 mg Route: IVP; Site: left wrist; ap3 14:15 Follow up: Response: No adverse reaction; Nausea is decreased ap3 14:29 Drug: LevaQUIN (levofloxacin) 750 mg Volume: 150 ml; Route: IVPB; Infused Over: 90 ap3 mins; Site: left wrist; 16:06 Follow up: Response: No adverse reaction; IV Status: Completed infusion ap3 17:33 Drug: morphine 4 mg Route: IVP; Site: left wrist; ap3 17:37 Follow up: Response: No adverse reaction; Pain is decreased; RASS: Alert and Calm (0) ap3 Outcome: 14:51 Decision to Hospitalize by Provider[facility] 17:40 Admitted to Med/surg ap3 17:40 Condition: good 17:40 Instructed on the need for admit. 18:03 Patient left the ED. ap3 Signatures: Dispatcher [employer] EDMS Levi Ruiz PA PA jmm Prokisch, Amanda RN RN ap3 Madelyn Hernandez RN RN ca1 Marsh, Wendy
[2021-02-12] MEDS ORDERED: ACETAMINOPHEN 500 MG TAB PO PRN (14:56)
[2021-02-12] MEDS: D5 0.45 NS 1,000 ML IV SCH (18:31)
[2021-02-12 19:55] VITALS: BMI 45.6
[2021-02-12] MEDS: MORPHINE 4 MG/ML SYR IV PRN (20:23)
[2021-02-12] MEDS: ONDANSETRON 4 MG/2 ML VIAL IV PRN (20:23)
[2021-02-13] MEDS: ONDANSETRON 4 MG/2 ML VIAL IV PRN ×3 (00:13→12:51)
[2021-02-13] MEDS: MORPHINE 4 MG/ML SYR IV PRN ×2 (00:13→04:57)
[2021-02-13] MEDS: D5 0.45 NS 1,000 ML IV SCH ×2 (00:40→03:31)
[2021-02-13 05:58] LABS: Basophils % 0.4 % (0-1.3); Hematocrit 38.6 % (39.6-49.0); Lymphocytes % 9.3 % (15.3-44.8); MPV 8.1 fL (7.6-11.3); RBC Red Blood Cell Count 4.31 M/uL (4.33-5.43)
[2021-02-13 06:09] LABS: BUN Blood Urea Nitrogen 8 mg/dL (7-18); Bicarbonate 25 mmol/L (21-32); Glucose Level 118 mg/dL (74-106); Potassium 3.9 mmol/L (3.5-5.1); Sodium Level 135 mmol/L (136-145)
[2021-02-13] MEDS ORDERED: Ringers Lactate 1,000 ML IV ONE (08:39)
--- NOTE | 2021-02-13 08:58 | P.HP ---
Date of Service: 02/13/21 PC: This 30-year-old male presents emergency room with severe perirectal pain for diagnosis and treatment. 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 Pain has intensified any could no longer stand it. Has not been draining. PMH: ADHD PSHx: No prior surgeries SOC: No known allergies, takes lateral SYS REVIEW: No cough, wheeze, shortness of breath no chest pain or palpitations no urinary complaints good exercise tolerance O/E wake alert uncomfortable HEENT: Negative Chest: Air entry equal bilaterally ABD: Soft nontender LOCO: Intact DATA: Has documented perirectal abscess IMPRESSION: Perirectal abscess PLAN: I will take him to the operating room for AE incision, drainage, sharp debridement of this perirectal abscess. The risks of this procedure have been discussed with the patient. The possibility of bleeding, infection, recurrence and need for further surgeries and procedures was discussed. He understands and wants us to proceed.
[2021-02-13] MEDS ORDERED: propofoL 200 MG/20 ML VIAL IV ONE (09:12)
[2021-02-13] MEDS ORDERED: dexAMETHasone 10 MG/ML VIAL ONE (09:12)
[2021-02-13] MEDS ORDERED: FENTANYL CITR 100 MCG/2 ML ONE ×2 (09:12→09:40)
[2021-02-13] MEDS ORDERED: MIDAZOLAM HCL 2 MG/2 ML INJ ONE (09:12)
[2021-02-13] MEDS ORDERED: LIDOCAINE 2% MPF 5 ML VIAL ONE (09:14)
--- NOTE | 2021-02-13 09:49 | P.OP ---
Preoperative diagnosis: PERIRECTAL ABSCESS Postoperative diagnosis: THE SAME Primary procedure: INCISION, DRAINAGE, SHARP DEBRIDEMENT OF PERIRECTAL ABSCESS. Anesthesia: GENERAL Estimated blood loss: LESS THAN 20 CC Specimen: CULTURES BOTH A AEROBIC AND ANAEROBIC WERE SENT Operative Technique: THE PATIENT WAS BROUGHT TO THE OPERATING ROOM AND PLACED SUPINE ON THE TABLE. AFTER THE INDUCTION OF ADEQUATE GENERAL ENDOTRACHEAL ANESTHESIA, HE WAS PUT IN THE LITHOTOMY POSITION. THE PERINEAL AREA WAS PREPPED AND DRAPED WITH A BETADINE SOLUTION. USING AN 18 GAUGE FINER NEEDLE, WE WERE ABLE TO LOCATE THE ABSCESS. THERE WAS INFILTRATED WITH 0.25% MARCAINE. A 11 BLADE WAS NOW USED TO MAKE A SKIN INCISION. THIS BROUGHT DOWN THROUGH THE SKIN AND SUBCUTANEOUS TISSUE. WE IN JACQUI LARGE AMOUNT OF THICK PURULENT FOUL-SMELLING OLD BLOOD. THIS WAS ASPIRATED FROM THE ABSCESS CAVITY USING THE SUCTION DEVICE. THE WOUND WAS THEN SHARPLY DEBRIDED WITH 11 BLADE AND A CUTTING SURGICAL CURETTE. AT THIS POINT A 2. NYLON WAS PLACED INTO THE WOUND AND BROUGHT OUT MORE LATERALLY AND TIED UPON ITSELF. THIS WAS DONE THE KEEP THE WOUND OPEN AND DRAINING DURING THE POSTOPERATIVE PERIOD. AT THE END OF PROCEDURE HE WAS STABLE WHEN SENT TO THE RECOVERY ROOM. NEEDLE SPONGE INSTRUMENT COUNT WERE CORRECT. Complications: None Transferred to: Recovery Room Condition: Good
[2021-02-13] MEDS ORDERED: HYDROCODONE/APAP 7.5/325 MG TAB PO PRN (09:56)
[2021-02-13] MEDS ORDERED: KETOROLAC 30 MG/ML INJ ONE (09:58)
[2021-02-13 10:17] VITALS: O2SAT 93
[2021-02-13 12:05] VITALS: BP 118/56; TEMP 96.2
[2021-02-13] MEDS ORDERED: SMZ./TMP. 800/160 MG TABLET PO SCH (21:00)
--- NOTE | 2021-02-14 07:42 | EKG ---
Test Date: 2021-02-12 Test Time: 14:52:15 Forest Resource Specialist: ALP MEASUREMENT RESULTS: Intervals: Rate: 85 DC: 144 QRSD: 82 QT: 340 QTc: 404 [place]: P: 7 DC: 144 QRS: 3 T: 30 INTERPRETIVE STATEMENTS: Normal sinus rhythm Normal ECG Compared to ECG 12/14/2018 18:14:12 No significant changes Electronically Signed On 02-14-21 07:39:30 CDT by Hakan Roberson
== END 2021-02-13 13:30 | disposition home or self-care (01) ==
LOC: ER 12:32 → DS 14:55 → INTOOBSV 17:41 → 2ND 17:41
PROVIDERS: ADMIT Surgery; ATTEND Surgery
PROC: 0D9P3ZZ Drainage of Rectum, Percutaneous Approach (ICD-10-PCS; principal; 2021-02-13 08:30)
DX: K61.1 Rectal abscess (principal); F90.9 Attention-deficit hyperactivity disorder, unspecified type; G47.33 Obstructive sleep apnea (adult) (pediatric); J45.909 Unspecified asthma, uncomplicated; I10 Essential (primary) hypertension; Z20.822 Contact with and (suspected) exposure to COVID-19
CPT/HCPCS: 93005; 87070; 85025 ×2; 80048 ×2; 36415; 87205 ×2; 82565; 80076; 87075; 83690; 72193; 46040; U0003; Q9967; J2704; J2250; J3010 ×2; J1100; G0378 ×4; J7799 ×2; J7120; J2405 ×6; 96365; 96366; 96375; 99285

== ENCOUNTER 2021-07-29 08:51 | Emergency (ER) | payer BC, OTHER ==
--- OUTSIDE RECORDS SUMMARY | 2021-07-29 08:53 | XMS REPORT | Continuity of Care Document ---
:1990 Author Organization [facility] t Address [address] [place] [address] Care Team Providers Name Role Phone Jeannine VANCE Attending Clinician Unavailable Jeannine VANCE Attending Clinician Unavailable INGRIS Attending Clinician Unavailable Ingris RAMÍREZ Attending Clinician Jeannine Vance MD Attending Clinician Doctor Unassigned, Name Attending Clinician Unavailable Payers Payer Name Policy Type Policy Number Effective Date Expiration Date Carmelita MYLES O [id number] 2018 00:00:00 Problems This patient has no known problems. Allergies, Adverse Reactions, Alerts Allergy Allergy Status Severity Reaction(s) Onset Inactive Treating Comm ents Source Name Type Date Date Clinician NO KNOWN Drug Active [facility] ALLERGIE Class [facility] Medications This patient has no known medications. Procedures This patient has no known procedures. Encounters Start End Encounter Admission Attending Care Care Encounter Source Date/Time Date/Time Type Type Clinicians Facility Department ID 2021-02-05 2021-02-05 Outpatient R SAE VANCE [facility] [id number] Univers 16:30:00 16:30:00 SAE VANCE [id number] [facility] 2021-02-05 2021-02-05 Outpatient R SAE VANCE [facility] [id number] Univers 16:30:00 16:30:00 SAE VANCE [facility] 2021-01-13 2021-01-13 Outpatient R INGRIS [facility] [id number] [facility] 15:40:00 15:40:00 SYED [id number] ity o ramesh [facility] 2021-01-13 2021-01-13 Outpatient R [facility] [id number] Univers 15:40:00 15:40:00 SYED cherryy o f [facility] 2020-12-10 2020-12-10 Refill [facility] [id number] 00:00:00 00:00:00 Syed Oliveiraton [id number] [place] [id number] Professio [phone] [address] 2020-11-12 2020-11-12 Refill [facility] [id number] 00:00:00 00:00:00 Syed Oliveiraton [id number] [place] [id number] Professio [phone] [address] 2020-08-06 2020-08-06 Telephone [facility] [id number] 00:00:00 00:00:00 Syed Oliveiraton [id number] [place] [id number] Professio [phone] [address] 2020-05-10 2020-05-10 Refill [facility] [id number] 00:00:00 00:00:00 Syed Oliveiraton [id number] [place] [id number] Professio [phone] [address] 2020-04-10 2020-04-10 Refill [facility] [id number] 00:00:00 00:00:00 Qialisset [place]on [id number] [place] [id number] Professio [phone] [address] 2020-03-08 2020-03-08 Refill [facility] [id number] 00:00:00 00:00:00 Qialisset [place] [id number] [place] [id number] Professio [phone] [facility] 059 [facility] 2020-02-08 2020-02-08 [facility] [id number] 00:00:00 00:00:00 Syed Clark [id number] [place] [id number] Professio [phone] [facility] 2020-01-31 2020-01-31 Outpatient R HA SAE [facility] [id number] [facility] 13:30:00 13:30:00 SAE VANCE 2005 10 [facility] 2020-01-31 2020-01-31 Outpatient R HA SAE [facility] [id number] [facility] 13:30:00 13:30:00 HA SOEASTUNDE [facility] 2020-01-31 2020-01-31 Office [facility] [id number] 11:05:26 11:35:26 Visit Sae Clark [id number] [place] 4.2.7.2.686 Prof[address]velandio [phone] [address] 2020-01-31 2020-01-31 Outpatient R SAE VANCE [facility] [id number] [facility] 11:30:00 11:30:00 HA MARYAMNaa [facility] 2020-01-31 2020-01-31 Letter [facility] [id number] 00:00:00 00:00:00 (Out) Sae Clark [id number] [place] [id number] Professio [phone] [address] 2020-01-31 2020-01-31 Orders Doctor JENNIFER [id number] 00:00:00 00:00:00 Only Unassigned, MARY 350.1.13.10 [place] [facility] [id number] [id number] 2019-09-26 2019-09-26 [id number] [facility] 13:20:00 16:31:57 SYED henson f [facility] Results This patient has no known results.
--- NOTE | 2021-07-29 11:23 | ER ---
Nurse's Notes [facility] Name: Donavon Herron Age: 31 yrs Sex: Male : 1990 Arrival Date: 07/29/2021 Time: 08:55 Bed 9 Private MD: Diagnosis: Bitten by dog, initial encounter;Laceration without foreign body of left middle finger without damage to nail, initial encounter Presentation: 07/29 09:38 Chief complaint: Patient states: dog bite to L third finger. Swelling noted. 1 cm ss laceration noted. No active bleeding at this time. Pt reports it was his dog. Coronavirus screen: Client denies travel out of the [place] in the last 14 days. Ebola Screen: Patient denies exposure to infectious person. Patient denies travel to an Ebola-affected area in the 21 days before illness onset. Initial Sepsis Screen: Does the patient meet any 2 criteria? No. Patient's initial sepsis screen is negative. Does the patient have a suspected source of infection? No. Patient's initial sepsis screen is negative. Risk Assessment: Do you want to hurt yourself or someone else? Patient reports no desire to harm self or others. Onset of symptoms was July 28, 2021. 09:38 Method Of Arrival: Ambulatory ss 09:38 Acuity: RAKESH 4 ss Historical: - Allergies: 09:40 No Known Allergies; ss - PMHx: 09:40 ADD/ADHD; Anxiety; heart problem; ss - Immunization history:: Last tetanus immunization: > 10 years ago. - Social history:: Smoking status: Patient reports use of chewing tobacco. Screenin:00 Abuse screen: Denies threats or abuse. Denies injuries from another. Nutritional ss screening: No deficits noted. Tuberculosis screening: Never had TB. Fall Risk None identified. Assessment: 10:30 General: Appears in no apparent distress. comfortable, Behavior is calm, cooperative. ss Neuro: Level of Consciousness is awake, alert, obeys commands, Oriented to person, place, time, situation. Cardiovascular: Capillary refill < 3 seconds is brisk in bilateral fingers Patient's skin is warm and dry. Respiratory: Airway is patent Trachea midline Respiratory effort is even, unlabored, Respiratory pattern is regular, symmetrical. : No signs and/or symptoms were reported regarding the genitourinary system. Derm: Skin is pink, warm \T\ dry. Musculoskeletal: Swelling present in palmar aspect of distal phalanx of left middle finger, palmar aspect of middle phalanx of left middle finger and palmar aspect of proximal phalanx of left middle finger. Injury Description: Laceration sustained to palmar aspect of middle phalanx of left middle finger and palmar aspect of proximal phalanx of left middle finger is 0.5 to 2.5 cm long, was sustained 6-12 hours ago. no active bleeding noted at this time. 12:20 Reassessment: Patient appears in no apparent distress at this time. Patient and/or ss family updated on plan of care and expected duration. Pain level reassessed. Patient is alert, oriented x 3, equal unlabored respirations, skin warm/dry/pink. Vital Signs: 09:38 BP 125 / 96; Pulse 66; Resp 16; Temp 97.5(TE); Pulse Ox 98% on R/A; Weight 131.54 kg; ss Height 5 ft. 8 in. (172.72 cm); Pain 7/10; 09:38 Body Mass Index 44.09 (131.54 kg, 172.72 cm) ss ED Course: 08:55 Patient arrived in ED. mr 09:40 Triage completed. ss 09:40 Arm band placed on right wrist. ss 09:41 Rai Hanna PA is PHCP. cp 09:41 Dre Yates MD is Attending Physician. cp 09:59 Rai Spann MD is Attending Physician. cp 10:00 Patient has correct armband on for positive identification. Bed in low position. Call ss light in reach. 10:28 XRAY Finger-Thumb Left In Process Unspecified. EDMS 11:05 [place] [facility] # [id number]. bd 11:39 Neva Diaz, JENNIFER is Primary Nurse. ss 12:19 No provider procedures requiring assistance completed. Patient did not have IV access ss during this emergency room visit. Wound care: to laceration was cleaned with Hibiclens, Patient tolerated well. Administered Medications: 11:44 Drug: Tetanus-Diphtheria Toxoid Adult 0.5 ml {Top Spotter: [id number]. Exp: ss 12/31/2022. Lot #: [id number]. } Route: IM; Site: left deltoid; 12:20 Follow up: Response: No adverse reaction ss 11:44 Drug: Augmentin (Amoxicillin-Clavulanate) 875 mg Route: PO; ss 12:20 Follow up: Response: No adverse reaction ss Outcome: 11:23 Discharge ordered by . cp 12:19 Discharged to home ambulatory. ss 12:19 Condition: good 12:19 Discharge instructions given to patient, Instructed on discharge instructions, follow up and referral plans. medication usage, Demonstrated understanding of instructions, follow-up care, medications. 12:20 Patient left the ED. ss Signatures: Dispatcher [employer] EDMS Shanell Morse Mary mr Smirch, Shelby, RN RN ss aRi Hanna, PA PA cp
--- NOTE | 2021-07-29 11:23 | EDPHYS ---
Physician Documentation [facility] Name: Donavon Herron Age: 31 yrs Sex: Male : 1990 Arrival Date: 07/29/2021 Time: 08:55 Bed 9 Private MD: ED Physician Rai Spann HPI: 07/29 09:42 This 31 yrs old Male presents to ER via Ambulatory with complaints of Finger Swelling. cp 09:42 The patient or guardian reports injury. cp 09:42 The complaints affect the left middle finger middle phalanx fuller side. Context: cp resulted from dog bite. Onset: The symptoms/episode began/occurred last night. Associated signs and symptoms: The patient has no apparent associated signs or symptoms. Historical: - Allergies: 09:40 No Known Allergies; ss - PMHx: 09:40 ADD/ADHD; Anxiety; heart problem; ss - Immunization history:: Last tetanus immunization: > 10 years ago. - Social history:: Smoking status: Patient reports use of chewing tobacco. ROS: 09:45 Constitutional: Negative for body aches, chills, fever, poor PO intake. cp 09:45 Eyes: Negative for injury, pain, redness, and discharge. cp 09:45 Cardiovascular: Negative for chest pain. 09:45 Respiratory: Negative for cough, shortness of breath, wheezing. 09:45 Abdomen/GI: Negative for abdominal pain, nausea, vomiting, and diarrhea. 09:45 Skin: Positive for laceration(s), swelling, of the left middle finger. 09:45 Neuro: Negative for numbness, tingling. 09:45 All other systems are negative. Exam: 09:50 Constitutional: The patient appears in no acute distress, alert, awake, well developed, cp well nourished. 09:50 Musculoskeletal/extremity: Extremities: grossly normal except: noted in the left middle cp finger: laceration, pain, swelling, tenderness, There is no evidence of decreased ROM, deformity, ROM: full active range of motion, in the left middle finger, Perfusion: the extremity is normally perfused throughout, Sensation intact. 09:50 Skin: injury, laceration(s), the wound is approximately 2 cm(s), of the fuller side middle phalanx left middle finger, that can be described as no foreign body, linear, without bleeding. Vital Signs: 09:38 BP 125 / 96; Pulse 66; Resp 16; Temp 97.5(TE); Pulse Ox 98% on R/A; Weight 131.54 kg; ss Height 5 ft. 8 in. (172.72 cm); Pain 7/10; 09:38 Body Mass Index 44.09 (131.54 kg, 172.72 cm) ss MDM: 10:28 Patient medically screened. cp 11:00 Differential diagnosis: open fracture, cellulitis, tenosynovitis, foreign body. cp 11:20 Data reviewed: vital signs, radiologic studies, plain films. Test interpretation: by ED cp physician or midlevel provider: xrays of left hand/middle finger negative for fracture. Counseling: I had a detailed discussion with the patient and/or guardian regarding: the historical points, exam findings, and any diagnostic results supporting the discharge/admit diagnosis, radiology results, to return to the emergency department if symptoms worsen or persist or if there are any questions or concerns that arise at home. Response to treatment: the patient's symptoms have markedly improved after treatment, and as a result, I will discharge patient. 11:22 ED course: Wound cleaned and irrigated by me. No sutures placed. Wound dressed by nursing staff. Xrays reviewed and negative for fracture. Patient instructed to monitor for worsening redness, drainage from wound, worsening pain/swelling and immediately return to ED if these signs occur. 07/29 09:41 Order name: XRAY Finger-Thumb Left; Complete Time: 11:45 07/29 11:46 Interpretation: Report reviewed. 07/29 10:28 Order name: Wound Care; Complete Time: 11:44 07/29 11:21 Order name: Wound dressing; Complete Time: 12:16 07/29 11:21 Order name: Finger Splint; Complete Time: 12:16 Administered Medications: 11:44 Drug: Tetanus-Diphtheria Toxoid Adult 0.5 ml {Drying Room Operator: A vida é feita de [place]. Exp: ss 12/31/2022. Lot #: [id number]. } Route: IM; Site: left deltoid; 12:20 Follow up: Response: No adverse reaction 11:44 Drug: Augmentin (Amoxicillin-Clavulanate) 875 mg Route: PO; ss 12:20 Follow up: Response: No adverse reaction Disposition: :30 Chart complete. cp 07/30 09:06 Co-signature as Attending Physician, Rai Spann MD I agree with the assessment and martha plan of care. Disposition Summary: 07/29/21 11:23 Discharge Ordered Location: Home cp Problem: new cp Symptoms: have improved cp Condition: Stable cp Diagnosis - Bitten by dog, initial encounter cp - Laceration without foreign body of left middle finger without damage to nail, cp initial encounter Followup: cp - With: Emergency Department - When: As needed - Reason: Worsening of condition Discharge Instructions: - Discharge Summary Sheet cp - Nonsutured Laceration Care cp - Animal Bite, Adult cp Forms: - Medication Reconciliation Form cp - Thank You Letter cp - Antibiotic Education cp - Prescription Opioid Use cp Prescriptions: - Augmentin 875-125 mg Oral Tablet - take 1 tablet by ORAL route every 12 hours for 10 days; 20 tablet; Refills: 0, cp Product Selection Permitted - Ibuprofen 800 mg Oral Tablet - take 1 tablet by ORAL route every 8 hours As needed take with food; 30 tablet; cp Refills: 0, Product Selection Permitted Signatures: Dispatcher [employer] Rai Bustos MD MD cha Smirch, Shelby, RN RN ss Rai Hanna PA PA cp
--- NOTE | 2021-07-29 11:31 | RAD REPORT ---
EXAM DESCRIPTION: RAD - Finger-Thumb Left - 07/29/2021 10:37 am CLINICAL HISTORY: ANIMAL BITE COMPARISON: HAND W OBLIQUES dated 09/19/2010 FINDINGS: Moderate soft tissue swelling affects the third finger. No fracture or radiopaque foreign body seen. No soft tissue gas.
[2021-07-29] MEDS ORDERED: TETANUS & DIPHTHERIA TOX,ADULT 0.5 ML VIAL ONE (11:40)
[2021-07-29] MEDS ORDERED: AMOX/K CLAV 875 MG TAB ONE (11:40)
[2021-07-29 12:25] VITALS: BP 125/96; TEMP 97.5; O2SAT 98
== END 2021-07-29 12:20 | disposition home or self-care (01) ==
LOC: ER 08:51
DX: S61.213A Laceration without foreign body of left middle finger without damage to nail, initial encounter (principal); W54.0XXA Bitten by dog, initial encounter; Y92.009 Unspecified place in unspecified non-institutional (private) residence as the place of occurrence of the external cause; F17.220 Nicotine dependence, chewing tobacco, uncomplicated; Z23 Encounter for immunization
CPT/HCPCS: 90471; 90714; 99283